=== PATIENT | female | born 1990 | race African-American/Black ===

== ENCOUNTER 2020-03-14 14:46 | Emergency (ER) | payer SELFPAY ==
--- NOTE | 2020-03-14 16:30 | ER ---
Nurse's Notes Formerly [facility] Name: Marely Lemos Age: 29 yrs Sex: Female : 1990 Arrival Date: 03/14/2020 Time: 14:52 Bed 27 Private MD: Diagnosis: Contact with and (suspected) exposure to other viral communicable diseases Presentation: 03/14 15:28 Chief complaint: Patient states: We have been around a whole family who all tested ca1 positive for Covid today. Denies any symptoms at this time. Coronavirus screen: Client denies travel out of the [place] in the last 14 days. At this time, the client does not indicate any symptoms associated with coronavirus-19. Exposure. Ebola Screen: Patient negative for fever greater than or equal to 101.5 degrees Fahrenheit, and additional compatible Ebola Virus Disease symptoms Patient denies exposure to infectious person. Patient denies travel to an Ebola-affected area in the 21 days before illness onset. No symptoms or risks identified at this time. Initial Sepsis Screen: Does the patient meet any 2 criteria? No. Patient's initial sepsis screen is negative. Does the patient have a suspected source of infection? No. Patient's initial sepsis screen is negative. Risk Assessment: Do you want to hurt yourself or someone else? Patient reports no desire to harm self or others. Onset of symptoms was March 14, 2020. 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 - Social history:: Smoking status: Patient/guardian denies using tobacco, the patient reports quitting approximately 5 years ago. Screenin:02 Abuse screen: Denies threats or abuse. Denies injuries from another. Nutritional ca1 screening: No deficits noted. Tuberculosis screening: No symptoms or risk factors identified. Fall Risk None identified. Assessment: 16:01 General: Appears in no apparent distress. comfortable, Behavior is calm, cooperative, ca1 appropriate for age. 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 Pain: Denies pain. Neuro: Level of Consciousness is awake, alert, obeys commands, Oriented to person, place, time, situation. Respiratory: Airway is patent Respiratory effort is even, unlabored, Respiratory pattern is regular, symmetrical, Breath sounds are clear bilaterally. Derm: Skin is intact, is healthy with good turgor, Skin is pink, warm \\T\\ dry. 16:56 Reassessment: Patient appears in no apparent distress at this time. Patient is alert, ca1 oriented x 3, equal unlabored respirations, skin warm/dry/pink. Vital Signs: 15:39 BP 151 / 91; Pulse 90; Resp 18 S; Temp 97.5(TE); Pulse Ox 98% on R/A; Weight 87.09 kg; ca1 Height 5 ft. 2 in. (157.48 cm); Pain 0/10; 16:56 BP 148 / 88; Pulse 91; Resp 16 S; Pulse Ox 99% on R/A; ca1 15:39 Body Mass Index 35.12 (87.09 kg, 157.48 cm) ca1 ED Course: 14:52 Patient arrived in ED. ds1 15:29 Triage completed. ca1 15:30 Arm band placed on right wrist. ca1 15:48 Francisca Lara, ANNEMARIE is Primary Nurse. ca1 15:49 Johnny Prater MD is Attending Physician. [facility] 16:02 Patient has correct armband on for positive identification. ca1 16:57 No provider procedures requiring assistance completed. Patient did not have IV access ca1 during this emergency room visit. Administered Medications: No medications were administered Outcome: 16:30 Discharge ordered by . [facility] 16:57 Discharged to home ambulatory, with family. ca1 16:57 Condition: stable 16:57 Discharge instructions given to patient, Instructed on discharge instructions, follow up and referral plans. Demonstrated understanding of instructions, follow-up care. 16:57 Patient left the ED. ca1 Signatures: Johnny Prater MD MD cha Sanford, Demi ds1 Francisca Lara, RN RN ca1 Corrections: (The following items were deleted from the chart) 15:30 15:28 Chief complaint: Patient states: We have been around a whole family who all ca1 tested positive for Covid today. Denies any symptoms at this time ca1
--- NOTE | 2020-03-14 16:31 | EDPHYS ---
Physician Documentation [facility] Name: Marely Lemos Age: 29 yrs Sex: Female : 1990 Arrival Date: 03/14/2020 Time: 14:52 Bed 27 Private MD: ED Physician Johnny Prater HPI: 03/14 16:24 This 29 yrs old Black Female presents to ER via Ambulatory with complaints of Covid hayden Exposure. 16:24 no symptoms, exposed friday. Onset: The symptoms/episode began/occurred. 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 - Social history:: Smoking status: Patient/guardian denies using tobacco, the patient reports quitting approximately 5 years ago. ROS: 16:25 Constitutional: Negative for fever, chills, and weight loss, Eyes: Negative for injury, hayden pain, redness, and discharge, ENT: Negative for injury, pain, and discharge, Neck: Negative for injury, pain, and swelling, Cardiovascular: Negative for chest pain, palpitations, and edema, Respiratory: Negative for shortness of breath, cough, wheezing, and pleuritic chest pain, Abdomen/GI: Negative for abdominal pain, nausea, vomiting, diarrhea, and constipation, Back: Negative for injury and pain, : Negative for injury, bleeding, discharge, and swelling, MS/Extremity: Negative for injury and deformity, Skin: Negative for injury, rash, and discoloration, Neuro: Negative for headache, weakness, numbness, tingling, and seizure, Psych: Negative for depression, anxiety, suicide ideation, homicidal ideation, and hallucinations, Allergy/Immunology: Negative for hives, rash, and allergies, Endocrine: Negative for neck swelling, polydipsia, polyuria, polyphagia, and marked weight changes. Exam: 16:25 Constitutional: This is a well developed, well nourished patient who is awake, alert, hayden and in no acute distress. Head/Face: Normocephalic, atraumatic. Eyes: Pupils equal round and reactive to light, extra-ocular motions intact. Lids and lashes normal. Conjunctiva and sclera are non-icteric and not injected. Cornea within normal limits. Periorbital areas with no swelling, redness, or edema. ENT: Nares patent. No nasal discharge, no septal abnormalities noted. Tympanic membranes are normal and external auditory canals are clear. Oropharynx with no redness, swelling, or masses, exudates, or evidence of obstruction, uvula midline. Mucous membranes moist. Neck: Trachea midline, no thyromegaly or masses palpated, and no cervical lymphadenopathy. Supple, full range of motion without nuchal rigidity, or vertebral point tenderness. No Meningismus. Chest/axilla: Normal chest wall appearance and motion. Nontender with no deformity. No lesions are appreciated. Cardiovascular: Regular rate and rhythm with a normal S1 and S2. No gallops, murmurs, or rubs. Normal PMI, no JVD. No pulse deficits. Respiratory: Lungs have equal breath sounds bilaterally, clear to auscultation and percussion. No rales, rhonchi or wheezes noted. No increased work of breathing, no retractions or nasal flaring. Abdomen/GI: Soft, non-tender, with normal bowel sounds. No distension or tympany. No guarding or rebound. No evidence of tenderness throughout. Back: No spinal tenderness. No costovertebral tenderness. Full range of motion. Skin: Warm, dry with normal turgor. Normal color with no rashes, no lesions, and no evidence of cellulitis. MS/ Extremity: Pulses equal, no cyanosis. Neurovascular intact. Full, normal range of motion. Neuro: Awake and alert, GCS 15, oriented to person, place, time, and situation. Cranial nerves II-XII grossly intact. Motor strength 5/5 in all extremities. Sensory grossly intact. Cerebellar exam normal. Normal gait. Vital Signs: 15:39 BP 151 / 91; Pulse 90; Resp 18 S; Temp 97.5(TE); Pulse Ox 98% on R/A; Weight 87.09 kg; ca1 Height 5 ft. 2 in. (157.48 cm); Pain 0/10; 16:56 BP 148 / 88; Pulse 91; Resp 16 S; Pulse Ox 99% on R/A; ca1 15:39 Body Mass Index 35.12 (87.09 kg, 157.48 cm) ca1 MDM: 15:49 Patient medically screened. [facility] 16:27 Data reviewed: vital signs, nurses notes. Data interpreted: color television console monitor: not hayden applicable for this patient encounter. rate is 90 beats/min, rhythm is regular. Counseling: I had a detailed discussion with the patient and/or guardian regarding: the historical points, exam findings, and any diagnostic results supporting the discharge/admit diagnosis. Administered Medications: No medications were administered Disposition: 03/14/20 16:30 Discharged to Home. Impression: Contact with and (suspected) exposure to other viral communicable diseases. - Condition is Stable. - Work release form, Medication Reconciliation Form, Thank You Letter, Antibiotic Education, Prescription Opioid Use form. - Follow up: Private Physician; When: 2 - 3 days; Reason: Recheck today's complaints, Continuance of care, Re-evaluation by your physician. - Problem is new. - Symptoms have improved. Signatures: Johnny Prater MD MD cha Acob, Cheryl, RN RN ca1 Corrections: (The following items were deleted from the chart) 16:57 16:30 03/14/2020 16:30 Discharged to Home. Impression: Contact with and (suspected) ca1 exposure to other viral communicable diseases. Condition is Stable. Forms are Work release form, Medication Reconciliation Form, Thank You Letter, Antibiotic Education, Prescription Opioid Use. Follow up: Private Physician; When: 2 - 3 days; Reason: Recheck today's complaints, Continuance of care, Re-evaluation by your physician. Problem is new. Symptoms have improved. hayden
[2020-03-14 17:05] VITALS: TEMP 97.5
[2020-03-14 17:06] VITALS: BP 148/88; O2SAT 99
== END 2020-03-14 16:57 | disposition home or self-care (01) ==
LOC: ER 14:46
DX: Z20.822 Contact with and (suspected) exposure to COVID-19 (principal)
CPT/HCPCS: 99281

== ENCOUNTER 2022-04-16 07:49 | Emergency (ER) | payer OTHER ==
[2022-04-16] MEDS ORDERED: KETOROLAC 30 MG/ML INJ ONE (08:22)
[2022-04-16 09:00] LABS: Urine Blood 2+ (Negative); Urine Glucose Negative (Negative); Urine Protein Negative (Negative); Urine Specific Gravity 1.015 (1.005-1.030)
[2022-04-16 09:25] LABS: Urine Specific Gravity/Preg 1.015 (1.005-1.030)
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
[2022-04-16 10:09] VITALS: TEMP 98.4
[2022-04-16 10:11] VITALS: BP 102/75; O2SAT 98
== END 2022-04-16 10:02 | disposition home or self-care (01) ==
LOC: ER 07:49
DX: S16.1XXA Strain of muscle, fascia and tendon at neck level, initial encounter (principal); S39.012A Strain of muscle, fascia and tendon of lower back, initial encounter; S29.012A Strain of muscle and tendon of back wall of thorax, initial encounter; S70.12XA Contusion of left thigh, initial encounter; V49.40XA Driver injured in collision with unspecified motor vehicles in traffic accident, initial encounter
CPT/HCPCS: 72125; 72128; 72131; 81003; 81025; 96372; 99283